=== PATIENT | male | born 1940 | race Caucasian/White ===

== ENCOUNTER 2020-10-15 17:50 | Inpatient (IN) | payer OTHER ==
[~2020-10-15] VITALS: Ht 185.4 cm; Wt 72.6 kg
[2020-10-15 19:04] LABS: HEMOGLOBIN 14.4 gm/dl (14.0-17.5); RED BLOOD COUNT 4.43 M/UL (4.20-5.50); WHITE BLOOD COUNT 5.4 K/UL (4.5-11.0)
[2020-10-15 19:21] LABS: BUN/CREATININE RATIO 13 (0-10)
[2020-10-15] MEDS ORDERED: LASIX 40 MG TAB40 MG PO (23:16)
[2020-10-15] MEDS ORDERED: ZESTRIL/PRINIVI10 MG PO (23:16)
[2020-10-15] MEDS ORDERED: OMEPRAZOLE20 MG PO (23:17)
[2020-10-15] MEDS ORDERED: TRELEGY ELLIPT1 EACH INH (23:17)
[2020-10-15] MEDS ORDERED: INDERAL TAB 2020 MG PO (23:18)
[2020-10-15] MEDS ORDERED: BUSPAR 10MG10 MG PO (23:18)
[2020-10-15] MEDS ORDERED: SINGULAIR10 MG PO (23:18)
[2020-10-15] MEDS ORDERED: XYZAL5 MG PO (23:19)
[2020-10-15] MEDS ORDERED: VENTOLIN HFA 66.7 GM INH (23:19)
[2020-10-16 03:01] LABS: HEMOGLOBIN 13.2 gm/dl (14.0-17.5); RED BLOOD COUNT 4.11 M/UL (4.20-5.50)
[2020-10-16 03:04] LABS: WHITE BLOOD COUNT 2.9 K/UL (4.5-11.0)
[2020-10-16 03:25] LABS: BUN/CREATININE RATIO 14 (0-10)
[2020-10-17 02:53] LABS: RED BLOOD COUNT 4.08 M/UL (4.20-5.50)
[2020-10-17 03:09] LABS: BUN/CREATININE RATIO 25 (0-10)
[2020-10-18 11:16] LABS: HEMOGLOBIN 12.9 gm/dl (14.0-17.5); RED BLOOD COUNT 4.06 M/UL (4.20-5.50); WHITE BLOOD COUNT 6.7 K/UL (4.5-11.0)
[2020-10-18 11:42] LABS: BUN/CREATININE RATIO 20 (0-10)
[2020-10-19 07:04] LABS: HEMOGLOBIN 13.4 gm/dl (14.0-17.5); RED BLOOD COUNT 4.24 M/UL (4.20-5.50); WHITE BLOOD COUNT 5.4 K/UL (4.5-11.0)
[2020-10-19 07:37] LABS: BUN/CREATININE RATIO 21 (0-10)
[2020-10-19] MEDS ORDERED: DEXAMETHASONE6 MG PO (10:05)
[2020-10-19] MEDS ORDERED: IPRAT-ALBUT 0.5-3 ML INH (10:05)
[2020-10-19] MEDS ORDERED: DOXYCYCLINE HY100 MG PO (10:05)
--- NOTE | 2020-10-19 10:30 | NUR ---
NOTIFIED PTS GRANDDAUGHTER PER DRS REQUEST,GRANDDAUGHTER WILL PICK PT UP ONCE DISCHARGED HOME., DR HOLDER MADE AWARE THAT PT DIDNT RECEIVE CONVALESCENT PLASMA DUE TO WEATHER NOT PERMITTING TRANSPORT OF PLASMA
== END 2020-10-19 16:15 | disposition home or self-care (01) | DRG 177 ==
LOC: ER1 17:50 → M/S 20:26 → CDU 20:26 → M/S 22:32
PROVIDERS: Internal Medicine; Preventive Medicine Occupational Medicine; ADMIT Hospitalist
PROC: 8E0ZXY6 Isolation (ICD-10-PCS; principal; 2020-10-15)
PROC: XW033E5 Introduction of Remdesivir Anti-infective into Peripheral Vein, Percutaneous Approach, New Technology Group 5 (ICD-10-PCS; 2020-10-15)
DX: U07.1 COVID-19 (principal); J12.82 Pneumonia due to coronavirus disease 2019; J96.01 Acute respiratory failure with hypoxia; J15.9 Unspecified bacterial pneumonia; J44.1 Chronic obstructive pulmonary disease with (acute) exacerbation; J44.0 Chronic obstructive pulmonary disease with (acute) lower respiratory infection; K70.30 Alcoholic cirrhosis of liver without ascites; I10 Essential (primary) hypertension; F17.210 Nicotine dependence, cigarettes, uncomplicated; Z98.49 Cataract extraction status, unspecified eye; Z79.899 Other long term (current) drug therapy
CPT/HCPCS: 0240U; 36415; 36600; 71045; 80048; 80053; 81001; 82550; 82553; 82803; 83605; 83690; 83874; 83880; 84484; 85025; 85027; 85379; 85652; 86140; 86900; 86901; 87086; 93005; 94640; 94664; 94760; 96365; 96366; 96367; 96372; 96375; 99285; J0456; J0696; J1100; J1650; J7030